=== PATIENT | male | born 1985 | race Asian ===

== ENCOUNTER 2017-04-01 20:43 | Emergency (ER) | payer OTHER ==
[2017-04-01 21:14] VITALS: BP 140/73
== END 2017-04-01 21:14 | disposition home or self-care (01) ==
LOC: ED 20:43
DX: R20.2 Paresthesia of skin (principal)

== ENCOUNTER 2017-09-29 01:56 | Emergency (ER) | payer OTHER ==
[~2017-09-29] VITALS: Ht 172.7 cm; Wt 109.8 kg
[2017-09-29 02:11] VITALS: Ht 172.7 cm; Wt 109.8 kg
[2017-09-29 02:55] LABS: BASOPHIL % 0.3 % (0-2); PLATELET COUNT 222 x10^3mcL (130-400); RED CELL DISTRIBUTION WIDTH 12.2 % (11.5-14.5)
[2017-09-29 03:03] LABS: CALCIUM 9.3 mg/dL (8.5-10.1); CARBON DIOXIDE 25.5 mmol/L (21-32); CHLORIDE SERUM 103 mmol/L (98-107); CREATININE SERUM 1.2 mg/dL (0.7-1.3); GFR1 > 60 mL/min; GLUCOSE SERUM 115 mg/dL (74-106); POTASSIUM SERUM 3.7 mmol/L (3.5-5.1); SODIUM SERUM 140 mmol/L (136-145)
[2017-09-29 03:08] LABS: ALBUMIN 3.6 g/dL (3.4-5.0); ALKALINE PHOSPHATASE 70 U/L (46-116); ALT/SGPT 60 U/L (16-63); AST/SGOT 29 U/L (15-37); BILIRUBIN TOTAL 0.28 mg/dL (0.20-1.00); TOTAL PROTEIN, SERUM 7.6 g/dL (6.4-8.2)
[2017-09-29 04:40] VITALS: BP 142/61
== END 2017-09-29 04:40 | disposition home or self-care (01) ==
LOC: ED 01:56
PROVIDERS: Emergency Medicine
DX: N23 Unspecified renal colic (principal)
CPT/HCPCS: J1885; J7030

== ENCOUNTER 2017-11-10 10:52 | Emergency (ER) | payer OTHER ==
[~2017-11-10] VITALS: Ht 172.7 cm; Wt 108.4 kg
[2017-11-10 10:55] VITALS: Ht 172.7 cm; Wt 108.4 kg
[2017-11-10 11:26] LABS: BASOPHIL % 0.4 % (0-2); PLATELET COUNT 231 x10^3mcL (130-400); RED CELL DISTRIBUTION WIDTH 12.3 % (11.5-14.5)
[2017-11-10 11:40] LABS: CALCIUM 9.3 mg/dL (8.5-10.1); CARBON DIOXIDE 26.4 mmol/L (21-32); CHLORIDE SERUM 103 mmol/L (98-107); GFR1 > 60 mL/min; GLUCOSE SERUM 91 mg/dL (74-106); POTASSIUM SERUM 3.7 mmol/L (3.5-5.1); SODIUM SERUM 137 mmol/L (136-145)
[2017-11-10 11:45] LABS: ALBUMIN 3.8 g/dL (3.4-5.0); ALKALINE PHOSPHATASE 72 U/L (46-116); ALT/SGPT 77 U/L (16-63); AST/SGOT 27 U/L (15-37); BILIRUBIN TOTAL 0.3 mg/dL (0.20-1.00); LIPASE 145 IU/L (73-393); TOTAL PROTEIN, SERUM 7.7 g/dL (6.4-8.2)
[2017-11-10 13:00] VITALS: BP 122/60
== END 2017-11-10 13:00 | disposition home or self-care (01) ==
LOC: ED 10:52
PROVIDERS: Emergency Medicine
DX: N23 Unspecified renal colic (principal)
CPT/HCPCS: J1885; J7030

== ENCOUNTER 2018-02-23 22:01 | Emergency (ER) | payer OTHER ==
[~2018-02-23] VITALS: Ht 172.7 cm; Wt 106.6 kg
[2018-02-23 22:25] VITALS: Ht 172.7 cm; Wt 106.6 kg
[2018-02-23 23:34] LABS: BASOPHIL % 0.6 % (0-2); PLATELET COUNT 227 x10^3mcL (130-400); RED CELL DISTRIBUTION WIDTH 12.5 % (11.5-14.5)
[2018-02-23 23:51] LABS: CALCIUM 8.3 mg/dL (8.5-10.1); CARBON DIOXIDE 25.6 mmol/L (21-32); CHLORIDE SERUM 103 mmol/L (98-107); CREATININE SERUM 1.1 mg/dL (0.7-1.3); GFR1 > 60 mL/min; GLUCOSE SERUM 112 mg/dL (74-106); POTASSIUM SERUM 3.1 mmol/L (3.5-5.1); SODIUM SERUM 140 mmol/L (136-145)
[2018-02-23 23:57] LABS: ALBUMIN 3.8 g/dL (3.4-5.0); ALKALINE PHOSPHATASE 74 U/L (46-116); ALT/SGPT 70 U/L (16-63); AST/SGOT 27 U/L (15-37); BILIRUBIN TOTAL 0.2 mg/dL (0.20-1.00); LIPASE 161 IU/L (73-393); TOTAL PROTEIN, SERUM 7.5 g/dL (6.4-8.2)
[2018-02-24 01:12] LABS: microscopic required? YES; urine erythrocyte 3+ (NEGATIVE)
[2018-02-24 01:18] VITALS: BP 102/58
== END 2018-02-24 01:46 | disposition home or self-care (01) ==
LOC: ED 22:01
PROVIDERS: Emergency Medicine
DX: N20.1 Calculus of ureter (principal); E78.00 Pure hypercholesterolemia, unspecified
CPT/HCPCS: J1885; J7030

== ENCOUNTER 2018-02-24 08:34 | Emergency (ER) | payer OTHER ==
[~2018-02-24] VITALS: Ht 172.7 cm; Wt 107.6 kg
[2018-02-24 08:54] VITALS: Ht 172.7 cm; Wt 107.6 kg
[2018-02-24 09:51] LABS: BASOPHIL % 0.3 % (0-2); PLATELET COUNT 222 x10^3mcL (130-400); RED CELL DISTRIBUTION WIDTH 12.3 % (11.5-14.5)
[2018-02-24 09:57] LABS: CALCIUM 8.3 mg/dL (8.5-10.1); CARBON DIOXIDE 25.5 mmol/L (21-32); CHLORIDE SERUM 105 mmol/L (98-107); CREATININE SERUM 1.2 mg/dL (0.7-1.3); GFR1 > 60 mL/min; GLUCOSE SERUM 104 mg/dL (74-106); POTASSIUM SERUM 4.4 mmol/L (3.5-5.1); SODIUM SERUM 140 mmol/L (136-145)
[2018-02-24 10:02] LABS: ALBUMIN 3.7 g/dL (3.4-5.0); ALKALINE PHOSPHATASE 74 U/L (46-116); ALT/SGPT 67 U/L (16-63); AST/SGOT 26 U/L (15-37); BILIRUBIN TOTAL 0.3 mg/dL (0.20-1.00); TOTAL PROTEIN, SERUM 7.4 g/dL (6.4-8.2)
[2018-02-24 11:26] VITALS: BP 130/80
== END 2018-02-24 11:26 | disposition home or self-care (01) ==
LOC: ED 08:34
PROVIDERS: Emergency Medicine
DX: N23 Unspecified renal colic (principal); R11.0 Nausea; E78.00 Pure hypercholesterolemia, unspecified
CPT/HCPCS: J1885; J2405; J7030

== ENCOUNTER 2018-02-27 01:31 | Inpatient (IN) | payer OTHER ==
[~2018-02-27] VITALS: Ht 172.7 cm; Wt 107.5 kg
[2018-02-27 02:55] LABS: microscopic required? YES; urine erythrocyte TRACE (NEGATIVE)
[2018-02-27 03:03] LABS: CARBON DIOXIDE 25.7 mmol/L (21-32); CREATININE SERUM 1.6 mg/dL (0.7-1.3); POTASSIUM SERUM 3.6 mmol/L (3.5-5.1)
[2018-02-27 03:04] LABS: BASOPHIL % 0.4 % (0-2); PLATELET COUNT 169 x10^3mcL (130-400)
[2018-02-27 03:07] LABS: RED CELL DISTRIBUTION WIDTH 11.3 % (11.5-14.5)
[2018-02-27 03:12] LABS: BILIRUBIN TOTAL 0.4 mg/dL (0.20-1.00); TOTAL PROTEIN, SERUM 6.6 g/dL (6.4-8.2)
[2018-02-27 03:13] LABS: ALBUMIN 3.3 g/dL (3.4-5.0)
[2018-02-27 03:29] LABS: MAGNESIUM 1.9 mg/dL (1.8-2.4); PHOSPHOROUS 3.7 mg/dL (2.5-4.9)
[2018-02-27 03:49] LABS: T3 TOTAL 1.25 ng/mL
[2018-02-27 03:59] LABS: FREE T4 1.31 ng/dL (0.76-1.46); FREE THYROXINE INDEX 3.5 ug/dL (1.4-4.5)
[2018-02-27] MEDS ORDERED: MOT600 PO (04:05)
[2018-02-27] MEDS ORDERED: FLO4 PO (04:06)
[2018-02-27] MEDS ORDERED: NORCO1 TA2 PO (04:07)
[2018-02-27 04:25] LABS: CHOLESTEROL/HDL RATIO 5.2
[2018-02-27 04:31] VITALS: BP 122/83
[2018-02-27 07:22] LABS: BASOPHIL % 0.2 % (0-2); PLATELET COUNT 198 x10^3mcL (130-400); RED CELL DISTRIBUTION WIDTH 12.1 % (11.5-14.5)
[2018-02-27 07:38] LABS: CALCIUM 7.9 mg/dL (8.5-10.1); CARBON DIOXIDE 24.8 mmol/L (21-32); CREATININE SERUM 1.5 mg/dL (0.7-1.3)
[2018-02-27 08:09] VITALS: BP 129/85
[2018-02-27 08:26] LABS: AMPHETAMINE QUAL UR NONE DETECTED (See below)
[2018-02-27 12:13] VITALS: BP 138/87
[2018-02-27 16:27] VITALS: BP 135/91
[2018-02-27 20:33] VITALS: BP 141/90
[2018-02-28 05:00] VITALS: BP 137/98
[2018-02-28 07:10] LABS: CALCIUM 8.7 mg/dL (8.5-10.1); CARBON DIOXIDE 25.8 mmol/L (21-32); CREATININE SERUM 1.6 mg/dL (0.7-1.3); MAGNESIUM 1.9 mg/dL (1.8-2.4); PHOSPHOROUS 3.9 mg/dL (2.5-4.9); POTASSIUM SERUM 3.9 mmol/L (3.5-5.1)
[2018-02-28 07:39] LABS: BASOPHIL % 0.1 % (0-2); PLATELET COUNT 212 x10^3mcL (130-400); RED CELL DISTRIBUTION WIDTH 11.6 % (11.5-14.5)
[2018-02-28 09:41] VITALS: BP 147/90
[2018-02-28 18:00] VITALS: BP 142/92
[2018-02-28 18:03] VITALS: BP 132/70
[2018-02-28 22:31] VITALS: BP 144/87
[2018-03-01 05:13] VITALS: BP 116/78
[2018-03-01 06:25] LABS: BASOPHIL % 0.3 % (0-2); PLATELET COUNT 242 x10^3mcL (130-400); RED CELL DISTRIBUTION WIDTH 12.2 % (11.5-14.5)
[2018-03-01 06:40] LABS: CALCIUM 9.1 mg/dL (8.5-10.1); CARBON DIOXIDE 22.5 mmol/L (21-32); CHLORIDE SERUM 104 mmol/L (98-107); CREATININE SERUM 1.3 mg/dL (0.7-1.3); GFR1 > 60 mL/min; GLUCOSE SERUM 114 mg/dL (74-106); PHOSPHOROUS 2.8 mg/dL (2.5-4.9); POTASSIUM SERUM 4.1 mmol/L (3.5-5.1); SODIUM SERUM 136 mmol/L (136-145)
[2018-03-01 08:00] VITALS: BP 143/86
[2018-03-01] MEDS ORDERED: BACTRIM DS1 TAB PO (08:37)
[2018-03-01] MEDS ORDERED: PYRIDIUM100 MG PO (08:40)
[2018-03-01] MEDS ORDERED: NORCO1 TA2 PO (09:04)
[2018-03-01 09:24] VITALS: BP 143/86
== END 2018-03-01 16:30 | disposition home or self-care (01) | DRG 443 ==
LOC: ED 01:31 → MU 03:22
PROVIDERS: Emergency Medicine; Family Medicine; Internal Medicine; Urology
PROC: 0T768DZ Dilation of Right Ureter with Intraluminal Device, Via Natural or Artificial Opening Endoscopic (ICD-10-PCS; 2018-02-28)
PROC: 0TC08ZZ Extirpation of Matter from Right Kidney, Via Natural or Artificial Opening Endoscopic (ICD-10-PCS; principal; 2018-02-28 19:30)
DX: N20.1 Calculus of ureter (principal); E83.51 Hypocalcemia; N39.0 Urinary tract infection, site not specified; E78.00 Pure hypercholesterolemia, unspecified; Z87.442 Personal history of urinary calculi; E66.9 Obesity, unspecified; Z68.36 Body mass index [BMI] 36.0-36.9, adult; Z71.3 Dietary counseling and surveillance
CPT/HCPCS: S2070; 84439; 94150; C1758; C1769; C2625; J0696; J1885; J2250; J2270; J2405; J3010; J7030; Q0092; Q9958; Q9967

== ENCOUNTER 2018-08-31 19:09 | Emergency (ER) | payer OTHER ==
[~2018-08-31] VITALS: Ht 172.7 cm; Wt 109.8 kg
[~2018-08-31 19:09] MED LIST: BACTRIM DS1 TAB PO; FLO4 PO; MOT600 PO; NORCO1 TA2 PO; PYRIDIUM100 MG PO
[2018-08-31 19:54] VITALS: Ht 172.7 cm; Wt 109.8 kg
[2018-08-31 21:54] VITALS: BP 127/79
== END 2018-08-31 21:54 | disposition home or self-care (01) ==
LOC: ED 19:09
DX: M54.5 Low back pain (principal); E78.00 Pure hypercholesterolemia, unspecified; Z87.442 Personal history of urinary calculi
CPT/HCPCS: J1885

== ENCOUNTER 2018-09-14 20:10 | Emergency (ER) | payer OTHER ==
[~2018-09-14] VITALS: Ht 172.7 cm; Wt 104.3 kg
[2018-09-14 20:35] VITALS: Ht 172.7 cm; Wt 104.3 kg
[2018-09-15 00:29] VITALS: BP 130/82
== END 2018-09-15 00:29 | disposition home or self-care (01) ==
LOC: ED 20:10
DX: G89.29 Other chronic pain (principal); R05 Cough; M54.5 Low back pain; E78.00 Pure hypercholesterolemia, unspecified; Z87.442 Personal history of urinary calculi
CPT/HCPCS: J1885

== ENCOUNTER 2018-10-11 09:26 | Emergency (ER) | payer OTHER ==
[~2018-10-11] VITALS: Ht 172.7 cm; Wt 112.0 kg
[2018-10-11 09:34] VITALS: Ht 172.7 cm; Wt 112.0 kg
[2018-10-11 11:51] VITALS: BP 119/62
== END 2018-10-11 11:51 | disposition home or self-care (01) ==
LOC: ED 09:26
DX: S39.012A Strain of muscle, fascia and tendon of lower back, initial encounter (principal); I10 Essential (primary) hypertension; E78.00 Pure hypercholesterolemia, unspecified; Z87.442 Personal history of urinary calculi; Z98.890 Other specified postprocedural states; X58.XXXA Exposure to other specified factors, initial encounter; Y93.89 Activity, other specified; Y92.89 Other specified places as the place of occurrence of the external cause; Y99.8 Other external cause status
CPT/HCPCS: J1885

== ENCOUNTER 2018-12-06 23:18 | Emergency (ER) | payer OTHER ==
[~2018-12-06] VITALS: Ht 172.7 cm; Wt 108.9 kg
[2018-12-06 23:26] VITALS: Ht 172.7 cm; Wt 108.9 kg
[2018-12-07 00:28] LABS: microscopic required? NO
[2018-12-07 00:34] LABS: BASOPHIL % 0.5 % (0-2); PLATELET COUNT 244 x10^3mcL (130-400); RED CELL DISTRIBUTION WIDTH 12.3 % (11.5-14.5)
[2018-12-07 00:43] VITALS: BP 98/71
[2018-12-07 00:49] LABS: CALCIUM 9.1 mg/dL (8.5-10.1); CARBON DIOXIDE 28.1 mmol/L (21-32); CHLORIDE SERUM 103 mmol/L (98-107); GFR1 > 60 mL/min; GLUCOSE SERUM 114 mg/dL (74-106); POTASSIUM SERUM 3.5 mmol/L (3.5-5.1); SODIUM SERUM 140 mmol/L (136-145)
[2018-12-07 00:54] LABS: ALBUMIN 3.8 g/dL (3.4-5.0); ALKALINE PHOSPHATASE 67 U/L (46-116); ALT/SGPT 81 U/L (16-63); AST/SGOT 33 U/L (15-37); BILIRUBIN TOTAL 0.37 mg/dL (0.20-1.00); TOTAL PROTEIN, SERUM 7.6 g/dL (6.4-8.2)
[2018-12-07 00:58] LABS: UA SPECIFIC GRAVITY 1.025 (1.005-1.035)
[2018-12-07 00:59] LABS: urine erythrocyte NEGATIVE (NEGATIVE)
== END 2018-12-07 02:12 | disposition home or self-care (01) ==
LOC: ED 23:18
PROVIDERS: Emergency Medicine
DX: R10.32 Left lower quadrant pain (principal); I10 Essential (primary) hypertension; E78.00 Pure hypercholesterolemia, unspecified; Z87.442 Personal history of urinary calculi
CPT/HCPCS: J1885; J7030

== ENCOUNTER 2019-04-26 08:08 | Day surgery (SDC) | payer OTHER ==
[~2019-04-26] VITALS: Ht 172.7 cm; Wt 110.7 kg
[2019-04-26 08:21] VITALS: BP 129/81
[2019-04-26 13:48] VITALS: BP 1300/88
== END 2019-04-26 12:30 | disposition home or self-care (01) ==
LOC: DS 08:08 → OR 10:00 → GI 10:00 → DS 12:30
DX: K29.50 Unspecified chronic gastritis without bleeding (principal); B96.81 Helicobacter pylori [H. pylori] as the cause of diseases classified elsewhere; J45.909 Unspecified asthma, uncomplicated; E78.00 Pure hypercholesterolemia, unspecified; Z87.442 Personal history of urinary calculi
CPT/HCPCS: 43235; J1200; J1610; J2250; J2310; J3010; J3490

== ENCOUNTER 2019-04-28 19:11 | Emergency (ER) | payer OTHER ==
[~2019-04-28] VITALS: Ht 172.7 cm; Wt 112.0 kg
[2019-04-28 19:28] VITALS: Ht 172.7 cm; Wt 112.0 kg
[2019-04-28 20:46] LABS: UA SPECIFIC GRAVITY <=1.005 (1.005-1.035); microscopic required? YES; urine erythrocyte 3+ (NEGATIVE)
[2019-04-28 21:47] VITALS: BP 128/80
== END 2019-04-28 21:47 | disposition home or self-care (01) ==
LOC: ED 19:11
PROVIDERS: Emergency Medicine
DX: R31.9 Hematuria, unspecified (principal); R10.32 Left lower quadrant pain; R10.13 Epigastric pain; I10 Essential (primary) hypertension; E78.00 Pure hypercholesterolemia, unspecified; Z87.442 Personal history of urinary calculi

== ENCOUNTER 2019-06-12 13:43 | Emergency (ER) | payer OTHER ==
[~2019-06-12] VITALS: Ht 172.7 cm; Wt 108.9 kg
[2019-06-12 13:58] VITALS: Ht 172.7 cm; Wt 108.9 kg
[2019-06-12 14:39] LABS: CALCIUM 8.7 mg/dL (8.5-10.1); CARBON DIOXIDE 28.6 mmol/L (21-32); CHLORIDE SERUM 103 mmol/L (98-107); CREATININE SERUM 1.1 mg/dL (0.7-1.3); GFR1 > 60 mL/min; GLUCOSE SERUM 106 mg/dL (74-106); SODIUM SERUM 140 mmol/L (136-145)
[2019-06-12 14:44] LABS: ALBUMIN 3.7 g/dL (3.4-5.0); ALKALINE PHOSPHATASE 73 U/L (46-116); ALT/SGPT 73 U/L (16-63); AST/SGOT 29 U/L (15-37); BILIRUBIN TOTAL 0.3 mg/dL (0.20-1.00); TOTAL PROTEIN, SERUM 7.5 g/dL (6.4-8.2)
[2019-06-12 14:55] LABS: BASOPHIL % 0.4 % (0-2); PLATELET COUNT 227 x10^3mcL (130-400); RED CELL DISTRIBUTION WIDTH 12.7 % (11.5-14.5)
[2019-06-12 15:42] VITALS: BP 123/81
== END 2019-06-12 15:42 | disposition home or self-care (01) ==
LOC: ED 13:43
PROVIDERS: Emergency Medicine
DX: N20.0 Calculus of kidney (principal); I10 Essential (primary) hypertension; E78.00 Pure hypercholesterolemia, unspecified
CPT/HCPCS: J1885; J7030

== ENCOUNTER 2020-02-27 20:02 | Emergency (ER) | payer OTHER ==
[~2020-02-27] VITALS: Ht 172.7 cm; Wt 107.5 kg
[2020-02-27 20:08] VITALS: Ht 172.7 cm; Wt 107.5 kg
[2020-02-27 20:44] LABS: BASOPHIL % 0.4 % (0-2); PLATELET COUNT 218 x10^3mcL (130-400); RED CELL DISTRIBUTION WIDTH 12.3 % (11.5-14.5)
[2020-02-27 20:55] LABS: CALCIUM 8.7 mg/dL (8.5-10.1); CARBON DIOXIDE 26.3 mmol/L (21-32); CHLORIDE SERUM 107 mmol/L (98-107); CREATININE SERUM 1.4 mg/dL (0.7-1.3); GFR1 > 60 mL/min; GLUCOSE SERUM 110 mg/dL (74-106); POTASSIUM SERUM 3.8 mmol/L (3.5-5.1); SODIUM SERUM 143 mmol/L (136-145)
[2020-02-27 21:00] LABS: ALBUMIN 3.5 g/dL (3.4-5.0); ALKALINE PHOSPHATASE 69 U/L (46-116); ALT/SGPT 83 U/L (16-63); AST/SGOT 34 U/L (15-37); BILIRUBIN TOTAL 0.3 mg/dL (0.20-1.00); LIPASE 134 IU/L (73-393)
[2020-02-27 22:48] VITALS: BP 136/96
== END 2020-02-27 22:48 | disposition home or self-care (01) ==
LOC: ED 20:02
PROVIDERS: Emergency Medicine
DX: N23 Unspecified renal colic (principal); I10 Essential (primary) hypertension; E78.00 Pure hypercholesterolemia, unspecified; Z87.442 Personal history of urinary calculi
CPT/HCPCS: J1885; J2405; J7030

== ENCOUNTER 2020-07-09 18:57 | Emergency (ER) | payer OTHER, SELFPAY ==
[~2020-07-09] VITALS: Ht 172.7 cm; Wt 108.9 kg
[2020-07-09 19:15] VITALS: Ht 172.7 cm; Wt 108.9 kg
[2020-07-09 21:01] LABS: BASOPHIL % 0.1 % (0-2); PLATELET COUNT 191 x10^3mcL (130-400); RED CELL DISTRIBUTION WIDTH 12.3 % (11.5-14.5)
[2020-07-09 21:08] LABS: CALCIUM 8.8 mg/dL (8.5-10.1); CARBON DIOXIDE 22.6 mmol/L (21-32); CREATININE SERUM 1.6 mg/dL (0.7-1.3); POTASSIUM SERUM 3.5 mmol/L (3.5-5.1)
[2020-07-09 21:13] LABS: ALBUMIN 3.5 g/dL (3.4-5.0); BILIRUBIN TOTAL 0.5 mg/dL (0.20-1.00); TOTAL PROTEIN, SERUM 7.3 g/dL (6.4-8.2)
[2020-07-09 22:30] VITALS: BP 111/71
== END 2020-07-09 22:30 | disposition home or self-care (01) ==
LOC: ED 18:57
PROVIDERS: Specialist
DX: R11.2 Nausea with vomiting, unspecified (principal); R19.7 Diarrhea, unspecified; M79.10 Myalgia, unspecified site; J02.9 Acute pharyngitis, unspecified; Z20.828 Contact with and (suspected) exposure to other viral communicable diseases
CPT/HCPCS: J1885; J2270; J2405; J7030; U0003

== ENCOUNTER 2020-09-24 10:30 | Emergency (ER) | payer OTHER ==
[~2020-09-24] VITALS: Ht 170.2 cm; Wt 115.2 kg
[2020-09-24 10:40] VITALS: Ht 170.2 cm; Wt 115.2 kg
[2020-09-24] MEDS ORDERED: ADV200 PO (14:06)
[2020-09-24 14:29] VITALS: BP 101/70
== END 2020-09-24 14:29 | disposition home or self-care (01) ==
LOC: ED 10:30
DX: G44.209 Tension-type headache, unspecified, not intractable (principal); I10 Essential (primary) hypertension; E78.00 Pure hypercholesterolemia, unspecified; Z87.442 Personal history of urinary calculi
CPT/HCPCS: J1885; J2765; J7030; U0003